=== PATIENT | female | born 1940 | race Caucasian/White ===

== ENCOUNTER 2016-12-30 20:07 | Inpatient (IN) | payer OTHER ==
[~2016-12-30] VITALS: Ht 162.6 cm; Wt 101.0 kg
--- NOTE | ~2016-12-30 | HC ---
[facility] [place] [address] CONSULTATION Name: JED PINON Room #: 546-P ADM IN M.R.#: [id number] Admission: 12/30/16 Attend Phys: Shaheed Galvan MD Discharge: Date of : 42 Report #: [id number] THIS REPORT FOR: //name// [facility] REASON FOR PRESENTATION: Post fall. REASON FOR CONSULTATION: End-stage renal disease. HISTORY OF PRESENT ILLNESS: The patient is a 76-year-old who is known to have end-stage renal disease, maintained on hemodialysis every Wednesday, and Wednesday. She has multiple other comorbid issues including and not limited COPD, obstructive sleep apnea. She had a fall yesterday and was admitted after her right leg gave out and landed abruptly on her right knee. No fractures were detected. She did have some swelling after the fall. She was admitted for further evaluation and management of her social situation. I was consulted to manage her dialysis related issues. PAST MEDICAL HISTORY: 1. End-stage renal disease, maintained on hemodialysis. 2. Hypertension. 3. Diabetes mellitus. 4. Obstructive sleep apnea. 5. Coronary artery disease. 6. Post-cholecystectomy. 7. Post-left AV fistula. 8. Post stents. SOCIAL HISTORY: Remote history of smoking, but no drug or alcohol abuse. FAMILY HISTORY: Significant for diabetes mellitus and hypertension. Brother had renal cell carcinoma. ALLERGIES: METFORMIN, PENICILLIN. MEDICATIONS: 1. Aspirin. 2. Linagliptin. 3. Levothyroxine. 4. Pioglitazone. 5. Nitroglycerin. 6. Albuterol. PAST SURGICAL HISTORY: 1. Appendectomy. 2. Cholecystectomy. [facility] [address] [place] [address] CONSULTATION Name: JED PINON Room #: 546-P ADM IN M.R.#: [id number] Admission: 12/30/16 Attend Phys: Shaheed Galvan MD Discharge: Date of : 42 Report #: [id number] 3. Bilateral cataracts. 4. Left AV fistula. 5. Multiple teeth extractions. REVIEW OF SYSTEMS: GENERAL: No fever or chills. CARDIOVASCULAR: No chest pain or palpitation. PULMONARY: Significant for shortness of breath, but no cough or hemoptysis. GASTROINTESTINAL: No nausea or vomiting. PHYSICAL EXAMINATION GENERAL: She is alert, oriented, in no apparent distress. VITAL SIGNS: Blood pressure is 101/36. Temperature 36.7, pulse rate 73. HEAD AND NECK: No jugular venous distention, no bruit, no thyromegaly. CHEST: Decreased air entry bilaterally with scattered wheezes. CARDIOVASCULAR: Regular with no rub detected. ABDOMEN: Soft, nontender with no hepatosplenomegaly. LOWER EXTREMITIES: Trace edema. LABORATORY VALUES: Reviewed. Hemoglobin 10.4. Potassium 5.5. Glucose is low at 65. IMAGING: Including the knee and the femur x-ray reviewed. ASSESSMENT, IMPRESSION AND PLAN: 1. End-stage renal disease. 2. Status post fall. 3. Debility. 4. Chronic obstructive pulmonary disease. 5. Obstructive sleep apnea. 6. Hyperkalemia. 7. Anemia related to her chronic medical illnesses. 8. The patient will be arranged for her to have dialysis today. 9. Continue to address her other comorbid issues including her diabetes mellitus and hypertension. 10. She tells me that she has issues with her AV fistula in the last few treatments and we will arrange for fistulogram. 11. 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 <ELECTRONICALLY SIGNED> By: Jhon Dumont MD 01/01/17 0824 0826 1459 Jhon Dumont MD /nt
--- NOTE | ~2016-12-30 | HC ---
[facility] [place] [address] CONSULTATION Name: JED PINON Room #: 546-P ADM IN M.R.#: [id number] Admission: 12/30/16 Attend Phys: Shaheed Galvan MD Discharge: Date of : 42 Report #: [id number] THIS REPORT FOR: //name// [facility] DATE OF SERVICE: 12/31/2016 HISTORY OF PRESENT ILLNESS: This heavy 76-year-old female with multiple medical problems including chronic renal failure, has been living semi independently with some assistance. She apparently fell several days ago landing awkwardly on the right knee. She was admitted for further evaluation and probable assistance with moving to extended care facility. She has already had radiographic evaluation of the knee and the right femur, which revealed no evidence of fracture. At the time of my evaluation, she is undergoing hemodialysis. She is alert and oriented and seems to have a good recollection of the event. She states she did not have significant preexisting knee problems and was able to ambulate independently, although with some balance issues, she is uncertain how she fell and feel she probably twisted the knee slightly and then landed on the knee. When hit the floor, she notes rather generalized right knee discomfort, mostly to the anterior aspect, but states these symptoms have improved significantly over the past 24 hours. Objectively, the right knee demonstrates moderate obesity of the thigh. There appears to be mild swelling about the knee and a mild knee effusion. The skin is intact. There is no redness or warmth. The knee seems stable with gentle varus and valgus stress. The patella seemed to be well positioned and tracked nicely. There is no crepitus. There is no evidence of instability. Distal neurologic and vascular status appeared to be intact. There is no objective evidence, which would suggest a fracture about the hip, knee, or lower leg. I have reviewed the x-rays of the right femur in the right knee and agreed that there is mild degenerative arthritis, but no evidence of any new fractures and overall alignment appears to be normal. In summary, this patient has mild preexisting degenerative arthritis involving the right knee. I think her fall resulted in a simple knee sprain and contusion. She may have a very mild prepatellar bursitis and a mild knee sprain with a mild joint effusion; however, this is not severe and probably does not require any sort of drainage. The knee appears stable. I think we can advance activity to comfort and strength allow. I feel her hip is also intact. I have not been able to reach family yet, I think their plans are to proceed with transfer to some sort of an assisted living or extended care facility given her multiple general problems, I think there she can get up with a walker and bear [facility] [address] [place] [address] CONSULTATION Name: JED PINON Room #: 546-P ADM IN M.R.#: [id number] Admission: 12/30/16 Attend Phys: Shaheed Galvan MD Discharge: Date of : 42 Report #: [id number] weight as tolerated if comfort and strength will allow. I am happy to follow along while she is here in the hospital or see her as an outpatient if symptoms require. <ELECTRONICALLY SIGNED> By: Willy Linder MD 01/01/17 0908 1142 1450 Willy Linder MD /nt
[2016-12-30 20:07] VITALS: BP 135/46
[~2016-12-30 20:07] MED LIST: ADVAIR HFA 230M12 GM INH; ALBUTEROL2.5 MG/0.5 INH; ALPRAZOLAM ER1 MG PO; ALPRAZOLAM PO; AMARYL2 MG PO; ASA81BEC PO; ASPIRIN EC325 M1 PO; CALCITRIOL0.5 MCG PO; CARVEDILOL25 MG PO; CLOPIDOGREL75 MG PO; COZAAR 50 MG TA50 M1 PO; CRESTOR40 MG PO; FENOFIBRATE200 MG PO; GLIMEPIRIDE4 MG PO; HUMALOG PE100 UNIT/1 SUBQ; LANTUS SUBQ; LEVAQUIN 500 M500 M1 PO; LEVOTHYROXIN0.175 MG PO; LEVOTHYROXINE0.2 M1 PO; LISINOPRIL20 MG PO; LISINOPRIL5 MG PO; MINIPRIN81 MG PO; MIRAPEX0.125 MG PO; MUCINEX DM TABL1 TA1 PO; NITROGLYCERIN0.4 MG SUBLING; NORCO 5-325 TA1 EACH PO; NOVOLOG100 UNIT/1 SUBQ; PROTONIX40 M2 PO; RENAL CAPS SOFTG1 MG PO; RENVELA2.4 GM PO; SENSIPAR60 MG PO; SPIRIVA INH; SYMBICORT160 MCG/4. INH; TUMS PO; VENTOLIN HFA INH8 GM INH; VITAMIN E400 UNIT PO; ZOCOR20 MG PO; ZOFRAN ODT4 MG PO; ZOLOFT25 MG PO
[2016-12-30 22:35] LABS: HEMATOCRIT 32.1 % (37.0-47.0); HEMOGLOBIN 10.4 gm/dL (12.0-15.0); MCH 29.5 pg (26.0-34.0); MCHC 32.5 g/dL (28.0-37.0); MCV 90.8 fL (80.0-100.0); PLATELET COUNT 213 thou/uL (150-400); RBC 3.54 mil/uL (4.20-5.00); RDW 17.2 % (10.5-14.5); WBC 7.9 thou/uL (4.0-11.0)
[2016-12-30] MEDS ORDERED: XANAX1 MG PO (22:42)
[2016-12-30] MEDS ORDERED: CALCIUM ACETAT667 MG PO (22:42)
[2016-12-30] MEDS ORDERED: GLUCOTROL5 MG PO (22:43)
[2016-12-30 22:44] LABS: CALCIUM 7.3 mg/dL (8.5-10.1); CREATININE 6.2 mg/dL (0.6-1.0); POTASSIUM 5.5 mmol/L (3.5-5.1)
[2016-12-30 22:48] LABS: ALBUMIN 3.1 g/dL (3.4-5.0); MANUAL DIFF YES; TOTAL BILIRUBIN 0.7 mg/dL (<0.1-1.0); TOTAL PROTEIN 7.4 g/dL (6.4-8.2)
[2016-12-30] MEDS ORDERED: LEVOTHYROXINE 0.15MG PO (22:52)
[2016-12-30] MEDS ORDERED: ATORVASTATIN CA40 MG PO (22:52)
[2016-12-30] MEDS ORDERED: PIOGLITAZONE15 MG PO (22:53)
[2016-12-30 23:12] VITALS: BP 139/55
[2016-12-30 23:25] LABS: ABSOLUTE NEUTROPHILS 6.9 thou/uL (1.4-8.2); ANISOCYTOSIS 1+; TOTAL CELL COUNT 100
[2016-12-31] MEDS ORDERED: TRADJENTA5 MG PO (00:20)
[2016-12-31 04:00] VITALS: BP 101/36
[2016-12-31 08:30] VITALS: BP 104/24
[2016-12-31 15:45] VITALS: BP 116/47
[2016-12-31 18:07] LABS: HEP B SURFACE Ab(ANTI-HBS Reactive (())
[2016-12-31 21:32] VITALS: BP 120/52
[2017-01-01 05:05] VITALS: BP 110/48
[2017-01-01 07:33] VITALS: BP 97/36
[2017-01-01 08:54] LABS: INR 1.1; PROTIME 11.7 Seconds (9.3-11.4)
[2017-01-01 15:09] VITALS: BP 112/40
[2017-01-01 21:30] VITALS: BP 101/38
[2017-01-02 04:40] VITALS: BP 110/61
[2017-01-02] MEDS ORDERED: HYDROCODON-ACE1 EAC7 PO (10:34)
== END 2017-01-02 14:13 | DRG 515 ==
LOC: ER 20:07 → EROBS 22:00 → 5S 22:00
PROVIDERS: Family Medicine; Hospitalist; Nurse Practitioner Family
DX: S86.812A Strain of other muscle(s) and tendon(s) at lower leg level, left leg, initial encounter (principal); N18.6 End stage renal disease; J96.11 Chronic respiratory failure with hypoxia; I12.0 Hypertensive chronic kidney disease with stage 5 chronic kidney disease or end stage renal disease; T82.590A Other mechanical complication of surgically created arteriovenous fistula, initial encounter; S80.01XA Contusion of right knee, initial encounter; M25.461 Effusion, right knee; I25.10 Atherosclerotic heart disease of native coronary artery without angina pectoris; J44.9 Chronic obstructive pulmonary disease, unspecified; E11.22 Type 2 diabetes mellitus with diabetic chronic kidney disease; E78.00 Pure hypercholesterolemia, unspecified; E87.5 Hyperkalemia; D63.8 Anemia in other chronic diseases classified elsewhere; F32.9 Major depressive disorder, single episode, unspecified; G47.33 Obstructive sleep apnea (adult) (pediatric); E66.9 Obesity, unspecified; W18.39XA Other fall on same level, initial encounter; Y83.8 Other surgical procedures as the cause of abnormal reaction of the patient, or of later complication, without mention of misadventure at the time of the procedure; Z68.38 Body mass index [BMI] 38.0-38.9, adult; I25.2 Old myocardial infarction; Z90.49 Acquired absence of other specified parts of digestive tract; Z95.5 Presence of coronary angioplasty implant and graft; Z98.42 Cataract extraction status, left eye; Z98.41 Cataract extraction status, right eye; Z79.82 Long term (current) use of aspirin; Z79.899 Other long term (current) drug therapy; Z87.891 Personal history of nicotine dependence; Z88.0 Allergy status to penicillin; Z88.8 Allergy status to other drugs, medicaments and biological substances; Z83.3 Family history of diabetes mellitus; Z82.49 Family history of ischemic heart disease and other diseases of the circulatory system; Z84.2 Family history of other diseases of the genitourinary system; Y93.89 Activity, other specified; Y92.89 Other specified places as the place of occurrence of the external cause; Y99.8 Other external cause status
CPT/HCPCS: 10086; 32100

== ENCOUNTER 2017-11-11 18:19 | Inpatient (IN) | payer OTHER ==
[~2017-11-11] VITALS: Ht 162.6 cm; Wt 92.5 kg
--- NOTE | ~2017-11-11 | EKG ---
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 : 1940 Requested By: Radha Muhammad Order Number: [id number] MD: Vitaliy Abarca Measurements Intervals Dawson Rate: 122 P: GA: QRS: 78 QRSD: 99 T: 166 QT: 342 QTc: 488 Interpretive Statements Atrial fibrillation Poor R wave progression Inferior infarct, possibly acute Compared to ECG 03/08/2013 08:08:04 Myocardial infarct finding now present Atrial fibrillation has replaced sinus rhythm Electronically Signed On 11-12-2017 8:30:50 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
--- NOTE | ~2017-11-11 | 2DMMODE ---
[facility] [address] [place] [address] 2 D/M-MODE ECHOCARDIOGRAM Name: JED PINON Room #: 358-P ADM IN M.R.#: [id number] Admission: 11/11/17 Attend Phys: Myra Barrera Discharge: Date of : 42 Date of Service: 11/14/17 0934 Report #: [id number] THIS REPORT FOR: //name// APPROVED REPORT Study performed: 11/13/2017 12:08:26 EXAM: Comprehensive 2D, Doppler, and color-flow Echocardiogram Patient Location: Bedside Room #: 358 Status: on-call BSA: 2.03 HR: 128 bpm BP: 88/47 mmHg Rhythm: Atrial Fibrillation Other Information Study Quality: Adequate Risk Factors: Cardiac Risk Factors: HTN, Hyperlipidemia, DM Indications COPD CAD ESRD Weakness 2D Dimensions LVEF(%): 64.33 (>50%) IVSd: 9.30 (7-11mm) LVOT Diam: 21.00 (18-24mm) LVDd: 46.64 mm PWd: 11.28 (7-11mm) Ascending Ao: 29.48 (22-36mm) LVDs: 30.30 (25-40mm) Aortic Root: 23.41 mm LV Single Plane 4CH: 59.44 % LV Single Plane 2CH: 64.02 % Carrasco's LVEF: 61.73 % Volumes Left Atrial Volume (Systole) Single Plane 4CH: 67.85 mL Single Plane 2CH: 55.48 mL Aortic Valve AoV Peak Mayco.: 1.65 m/s [facility] [address] [place] [address] 2 D/M-MODE ECHOCARDIOGRAM Name: JED PINON Room #: 358-P [facility] IN ..#: [id number] Admission: 11/11/17 Attend Phys: Myra Barrera Discharge: Date of : 42 Date of Service: 11/14/17 0934 Report #: [id number] AO Peak Gr.: 10.94 mmHg LVOT Max P.37 mmHg LVOT Max V: 0.77 m/s OCTAVIA Vmax: 1.54 cm2 Pulmonary Valve PV Peak Mayco.: 1.13 m/s PV Peak Gr.: 5.25 mmHg Tricuspid Valve TR Peak Mayco.: 2.67 m/s RAP Estimate: 10.00 mmHg TR Peak Gr.: 28.48 mmHg PA Pressure: 39.00 mmHg Left Ventricle The left ventricle is normal size. There is normal LV segmental wall motion. Borderline concentric left ventricular hypertrophy. Left ventricular systolic function is normal. The left ventricular ejection fraction is within the normal range. LVEF is 60-65%. Left atrial pressure is elevated. Grade III - reversible restrictive diastolic dysfunction. Right Ventricle The right ventricle is normal size. The right ventricular systolic function is normal. Atria Left atrium is mildly dilated. Right atrium is mildly dilated. Aortic Valve The Aortic valve is sclerotic. No aortic regurgitation is present. There is no aortic valvular stenosis. Mitral Valve There is mitral annular calcification. Trace mitral regurgitation. No evidence of mitral valve stenosis. Tricuspid Valve The tricuspid valve is normal in structure. moderate tricuspid regurgitation. Pulmonary artery pressure is 39 mmHg. Pulmonic Valve The pulmonary valve is normal in structure. There is no pulmonic valvular regurgitation. Great Vessels The aortic root is normal in size. IVC is dilated and collapses [facility] [address] [place] [address] 2 D/M-MODE ECHOCARDIOGRAM Name: JED PINON Room #: 358-P ADM IN M.R.#: [id number] Admission: 11/11/17 Attend Phys: Myra Barrera Discharge: Date of : 42 Date of Service: 11/14/17 0934 Report #: [id number] <50% with inspiration. Pericardium There is no pericardial effusion. <Conclusion> LVEF is 60-65%. There is normal LV segmental wall motion. Left atrial pressure is elevated. Grade III - reversible restrictive diastolic dysfunction. The Aortic valve is sclerotic. There is no aortic valvular stenosis. No aortic regurgitation is present. There is mitral annular calcification. Trace mitral regurgitation. No evidence of mitral valve stenosis. moderate tricuspid regurgitation. Pulmonary artery pressure is 39 mmHg. There is no pericardial effusion. <ELECTRONICALLY SIGNED> By: Dmitry Soria MD, FAC 11/14/1734 3 3 Dmitry Soria MD, FAC /INF
--- NOTE | ~2017-11-11 | HC ---
[facility] [place] [address] CONSULTATION Name: JED PINON Room #: 358-P [facility] IN M.R.#: [id number] Admission: 11/11/17 Attend Phys: Myra Bray Discharge: 11/17/17 Date of : 42 Report #: [id number] THIS REPORT FOR: //name// CC: [facility] DATE OF SERVICE: 11/12/2017 NEPHROLOGY CONSULTATION ATTENDING PHYSICIAN: Dr. Bray. REASON FOR CONSULTATION: Volume overload, congestive heart failure. HISTORY OF PRESENT ILLNESS: This patient is well known to our service, longstanding dialysis patient with diabetes and coronary artery disease, has had atrial fibrillation, has had massive fluid accumulation despite ongoing dialysis and has been unable to get the fluid off with daily dialysis in the outpatient clinic and now has been admitted. She also had a mildly elevated troponin. PAST MEDICAL HISTORY: She has coronary artery disease, has had previous coronary stents with ischemic cardiomyopathy, chronic atrial fibrillation, longstanding dialysis, end-stage renal disease. HOME MEDICATIONS: Include midodrine 2.5 mg t.i.d., Nephrocaps, warfarin 4 mg daily, metoprolol 25 mg b.i.d., calcium acetate 2 t.i.d. with meals, levothyroxine 0.15 mg daily, Lipitor 40 mg daily, Actos 45 mg daily, fenofibrate 200 mg daily, Protonix 40 mg daily, Mirapex 0.125 mg at bedtime, Zoloft 25 mg at bedtime. SOCIAL HISTORY: Former smoker. Lives at home I believe by herself. REVIEW OF SYSTEMS: GENERAL: She has been feeling poorly. EYES: Her vision is reasonably good. ENT: Hearing okay. Swallows okay. Denies mouth ulcers. ENDOCRINE: Positive for the diabetes and thyroid disease. RESPIRATORY: Easily short-winded. CARDIAC: No chest pain, but she does have palpitations. GASTROINTESTINAL: Good appetite without nausea, vomiting, diarrhea. GENITOURINARY: Unremarkable. NEUROLOGIC: Some peripheral neuropathy. PHYSICAL EXAMINATION: GENERAL: This is a chronically ill-appearing patient, somewhat swollen. [facility] [address] [place] [address] CONSULTATION Name: JED PINON Room #: 358-P [facility] IN M.R.#: [id number] Admission: 11/11/17 Attend Phys: Myra Bray Discharge: 11/17/17 Date of : 42 Report #: [id number] SKIN: Unremarkable. SKELETAL: Overweight. HEENT: Extraocular movements full. Vision intact. No scleral icterus. Hearing intact. Mucous membranes moist. NECK: No carotid bruits are heard. CHEST: Shows diminished breath sounds at the bases. HEART: Irregularly irregular. ABDOMEN: Soft, nontender. EXTREMITIES: Show 2-3+ brawny edema. LABORATORY DATA: Potassium is only 3, hemoglobin is 9.9. ASSESSMENT AND PLAN: 1. Atrial fibrillation with rapid ventricular response. Cardiology is working on her medications. 2. Chronic volume overload. She has lots of volume on board. We will work on trying to get it off. 3. Ischemic cardiomyopathy with history of coronary artery disease and stents. 4. End-stage renal disease, on dialysis. 5. Diabetes mellitus. <ELECTRONICALLY SIGNED> By: Andrew Dominguez MD 11/23/17 1706 1019 1150 Andrew Dominguez MD /nt
--- NOTE | ~2017-11-11 | HC ---
[facility] [place] [address] CONSULTATION Name: JED PINON Room #: 358-P ADM IN M.R.#: [id number] Admission: 11/11/17 Attend Phys: Myra Bray Discharge: Date of : 42 Report #: [id number] THIS REPORT FOR: //name// CC: Myra Montelongo DATE OF SERVICE: 11/12/2017 REQUESTING PHYSICIAN: Dr. Hobbs. PRIMARY CARE DOCTOR: Dr. Shari Bautista, Dr. Nadine Montelongo and Dr. Willy Kowalski. CHIEF COMPLAINT: Weakness, shortness of breath, fluid retention, vaginal cellulitis. HISTORY OF PRESENT ILLNESS: The patient is a 77-year-old female who presented with weakness and fluid retention. She has been having increasing shortness of breath on her oxygen at home. She has a history of obstructive lung disease, coronary artery disease, status post remote MA and atrial fibrillation. These are all known problems and we are asked to see her in regards to her atrial fibrillation, which had elevated heart rates and associated with lower blood pressures. Clinically, the patient does not feel her palpitations. She has dyspnea with exertion. She has underlying history of coronary artery disease, but denies chest pain or pressure. She had been dialyzing for 2-3 days in a row with hopes to remove her extra fluid, but with minimal response. She presents with increasing lower extremity swelling and abdominal girth. With her atrial fibrillation, she denies neuro symptoms, slurred speech, numbness or weakness. She had been anticoagulated with warfarin. Her INR was 8.9 on presentation. PAST MEDICAL HISTORY: Significant for coronary artery disease, atrial fibrillation, COPD, end-stage renal disease, debilitation. HOME MEDICATIONS: Include the following: Folic acid, warfarin 4 mg daily, which she had been taking and compliant with Lopressor 25 mg daily, alprazolam p.r.n., Synthroid 125 mcg daily, Actos 45 mg daily, Protonix 40 mg daily, Zoloft, nitroglycerin, and albuterol. [facility] [address] [place] [address] CONSULTATION Name: JED PINON Room #: 358-P [facility] IN ..#: [id number] Admission: 11/11/17 Attend Phys: Myra Bray Discharge: Date of : 42 Report #: [id number] PAST SURGICAL HISTORY: Prior appendectomy; cholecystectomy; PCI 3 times, in 1989, 2010; prior carotid endarterectomy. REVIEW OF SYSTEMS: GASTROINTESTINAL: No abdominal pain, nausea. Positive swelling. CARDIOVASCULAR: No chest pain. Positive shortness of breath. No palpitations. NEUROLOGIC: No headaches, blurry vision, slurred speech. EYES: Denies any loss of vision. MUSCULOSKELETAL: Denies falls. Positive weakness. PULMONARY: Positive cough, shortness of breath. Positive wheezing, positive COPD. HEMATOLOGIC: Positive anemia. RENAL: Positive renal failure. ENDOCRINE: Positive history of diabetes and thyroid disease. PHYSICAL EXAMINATION: VITAL SIGNS: Blood pressure has been ranging from 90-110 systolic on IV Cardizem, atrial fibrillation, heart rates have in the 110s to 120s. O2 sat on 4 liters is 95%. GENERAL: This is an obese elderly female. She is pleasant and sitting up on the edge of bed, in no apparent distress. HEENT: Eyes: EOMS intact. No facial asymmetry. NECK: No jugular venous distention. CARDIOVASCULAR: Irregular, faint systolic murmur. LUNGS: Coarse breath sounds bilaterally. ABDOMEN: Protuberant, nontender, positive distention. EXTREMITIES: There is 1 to 2+ edema. NEUROLOGIC: There are no focal deficits. Electrocardiogram demonstrates atrial fibrillation, nonspecific ST segment abnormalities. LABORATORY DATA: Hemoglobin is 9.9, white blood count is 10.0, platelet counts are 94,000. INR is 8.9. Sodium is 136, potassium is 3.0, chloride is 100, CO2 is 24, BUN is 14, creatinine is 3.0. Troponin I is 0.10, 0.09. NT-proBNP is 13,557. Chest x-ray reveals cardiomegaly with pulmonary venous congestion. Pelvic CT, enlargement of the right labia majora with increased attenuation, may be due to infection, anasarca and mild ascites. IMPRESSION AND PLAN: 1. Acute diastolic heart failure. I would continue with dialysis as tolerated. 2. Atrial fibrillation with rapid ventricular response. We will titrate her medications, adding a calcium channel bess to her metoprolol. We will likely wean her off IV Cardizem as she has developed symptomatic hypotension. If this [facility] [address] [place] [address] CONSULTATION Name: JED PINON Room #: 358-P ADM IN M.R.#: [id number] Admission: 11/11/17 Attend Phys: Myra Bray Discharge: Date of : 42 Report #: [id number] does not control her heart rate, we may need the amiodarone load her. 3. Cellulitis. As noted above, she is on antibiotics. 4. Coagulopathy. 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 5. End-stage renal disease. 6. Coronary artery disease. I have ordered an echocardiogram to assess her LV function, but she presents without symptoms compatible with an ACS and likely her abnormal troponin level is secondary to congestive heart failure and her end-stage renal disease. <ELECTRONICALLY SIGNED> By: Dmitry Soria MD, FACC 11/17/17 0844 0841 0931 Dmitry Soria MD, FACC /nt
--- NOTE | ~2017-11-11 | HC ---
[facility] [place] [address] CONSULTATION Name: JED PINON Room #: 358-P ADM IN M.R.#: [id number] Admission: 11/11/17 Attend Phys: Myra Bray Discharge: Date of : 42 Report #: [id number] THIS REPORT FOR: //name// [facility] DATE OF SERVICE: 11/14/2017 INFECTIOUS DISEASE CONSULTATION ATTENDING PHYSICIAN: Myra Bray MD REASON FOR EVALUATION: Multiple pressure related right buttock superficial ulcers, also has inflammatory eruption involving the pannus folds as well as the more typical cellulitic type rash involving the perineal area include the labia. HISTORY OF PRESENT ILLNESS: Chart reviewed, patient examined. This is a 77-year-old with extensive medical history, has end-stage renal disease on hemodialysis, also has O2 requiring COPD up to 4 liters throughout the day who apparently 3 weeks ago had worsening signs and symptoms, became quite weak, decreased mobility, developed sores on her buttock, had been treated with topical therapy. It is not clear that she had fevers at home and feels like there were some low-grade temperature elevations and recorded up to 100.3 here. She has had a poor appetite with decreased p.o. intake. Denies significant nausea or diarrhea. She is empirically started on antibiotics consisting of aztreonam, metronidazole, and vancomycin. She is not encephalopathic. Denies significant pulmonary related complaints at this point. ALLERGIES: PENICILLIN WHICH CAUSES URTICARIA, SHE NOTES THIS HAS BEEN GREATER THAN 20 YEARS AGO. METFORMIN CAUSES DIARRHEA. MEDICATIONS: Include metoprolol, diltiazem, aztreonam, Flagyl, alprazolam, diltiazem, atorvastatin, phenylephrine, fenofibrate, pioglitazone, levothyroxine, sertraline, midodrine, vancomycin, p.r.n. analgesics, antiemetics. PAST MEDICAL HISTORY: COPD, O2 requiring although she denies significant amount of exogenous corticosteroid use, has diabetes mellitus type 2 complicated by vasculopathy, end-stage renal disease, has known coronary artery disease, previous stenting, hypertension, high cholesterol, sleep apnea, reflux, does have hemorrhoids, has a history of depression. SOCIAL HISTORY: Former smoker, occasional ethanol. FAMILY HISTORY: Noncontributory. [facility] [address] [place] [address] CONSULTATION Name: JED PINON Room #: 358-[facility] IN M.R.#: [id number] Admission: 11/11/17 Attend Phys: Myra Bray Discharge: Date of : 42 Report #: [id number] REVIEW OF SYSTEMS: As above. PHYSICAL EXAMINATION: GENERAL: She is in geja-tl-pyzamevh distress. She appears chronically ill, undernourished. She is cooperative, pleasant. VITAL SIGNS: Temperature 97.8, pulse 97, respirations 20, blood pressure is 80/48. SKIN: Warm, dry. HEENT: Unremarkable. NECK: Supple. LUNGS: Somewhat diminished, generally clear with a few scattered crackles at the bases. HEART: Regular. Borderline tachycardic. I do not appreciate any murmur. ABDOMEN: Soft. Does have a large pannus in the folds, does have an inflammatory eruption and then down more in the suprapubic into the labia is more typically cellulitic type process with induration of the right labia, no apparent fluctuance. Sacral site right buttock is a paring pressure related superficial ulcerations with mild degree of malodor as well. I do not appreciate any significant subcutaneous masses, etc. LABORATORY DATA: Total bilirubin of 2.0. Cryptosporidium antigen was not detected as was negative for Giardia, enteric pathogens were not noted, although culture in progress. Blood cultures sterile thus far. Echo EF of 60%-65%. She has got a grade 3 diastolic dysfunction, aortic valve sclerotic without stenosis. There is some aortic regurg present. Trace mitral regurg, moderate tricuspid regurg. A proBNP of 14,349. CBC: White count of 7.9, H and H 10.4 and 32.0, platelets of 213. Electrolytes: Sodium 136, potassium 3.4, chloride 98, bicarbonate is 26, BUN and creatinine 24 and 4.1. TSH is 6.769. CT of the pelvis with contrast showed enlargement of the right labia and attenuation of soft tissues. No subcutaneous emphysema or focal fluid collection. Chest x-ray: Cardiomegaly with pulmonary vascular venous congestion, mild perihilar interstitial infiltrates. ASSESSMENT AND PLAN: Inflammatory eruption involving the perineal and some superficial ulcers may well have certainly the labia suggest a cellulitic type process. I do not think there is any drainable focus at this point, would continue antimicrobial treatment, may well have a fungal component as well, we will dose with fluconazole. She is certainly at risk given her body habitus as well as broad spectrum antibacterials. Continue wound care as prescribed. We will discuss with Dr. Lovelace. <ELECTRONICALLY SIGNED> By: Daniel Mcdaniel MD 11/15/17 0757 1736 222 Daniel Mcdaniel MD /nt
[~2017-11-11 18:19] MED LIST changes: +ATORVASTATIN CA40 MG PO; +CALCIUM ACETAT667 MG PO; +GLUCOTROL5 MG PO; +HYDROCODON-ACE1 EAC7 PO; +LEVOTHYROXINE 0.15MG PO; +PIOGLITAZONE15 MG PO; +TRADJENTA5 MG PO; +XANAX1 MG PO
[2017-11-11 18:22] VITALS: BP 93/44
[2017-11-11 18:53] LABS: HEMATOCRIT 30.1 % (37.0-47.0); HEMOGLOBIN 9.9 gm/dL (12.0-15.0); MCH 34.2 pg (26.0-34.0); MCHC 32.9 g/dL (28.0-37.0); MCV 104.1 fL (80.0-100.0); PLATELET COUNT 190 thou/uL (150-400); RDW 18.6 % (10.5-14.5); WBC 10.3 thou/uL (4.0-11.0)
[2017-11-11 19:00] LABS: CALCIUM 8.5 mg/dL (8.5-10.1); CREATININE 2.6 mg/dL (0.6-1.0); POTASSIUM 3.3 mmol/L (3.5-5.1)
[2017-11-11 19:04] LABS: TROPONIN-I 0.09 ng/mL (<0.06)
[2017-11-11 19:29] LABS: ABSOLUTE NEUTROPHILS 7.7 thou/uL (1.4-8.2)
[2017-11-11 19:30] LABS: ANISOCYTOSIS 1+; MACROCYTES 2+; POLYCHROMASIA SLIGHT
[2017-11-11 21:00] VITALS: BP 93/46
[2017-11-11 21:16] VITALS: BP 94/35
[2017-11-11] MEDS ORDERED: MIDODRINE HCL 55 M1 PO (21:36)
[2017-11-11] MEDS ORDERED: RENO CAPS SOFTGE1 MG PO (21:37)
[2017-11-11] MEDS ORDERED: COUMADIN 4 MG TA4 M1 PO (21:39)
[2017-11-11] MEDS ORDERED: LOPRESSOR25 PO (21:43)
[2017-11-12 00:02] LABS: PROTIME 89.6 Seconds (9.3-11.4)
[2017-11-12 00:09] LABS: INR 9.1
[2017-11-12 03:00] VITALS: BP 129/30
[2017-11-12 04:23] LABS: CALCIUM 7.7 mg/dL (8.5-10.1); MAGNESIUM 1.8 mg/dL (1.8-2.4)
[2017-11-12 05:30] LABS: PROTIME 87.3 Seconds (9.3-11.4)
[2017-11-12 05:31] LABS: INR 8.9
[2017-11-12 05:32] LABS: HEMATOCRIT 30.1 % (37.0-47.0); HEMOGLOBIN 9.9 gm/dL (12.0-15.0); MCH 34.1 pg (26.0-34.0); MCHC 32.8 g/dL (28.0-37.0); MCV 104.1 fL (80.0-100.0); RBC 2.89 mil/uL (4.20-5.00); RDW 19.4 % (10.5-14.5)
[2017-11-12 07:16] VITALS: BP 80/46
[2017-11-12 08:36] VITALS: BP 111/57
[2017-11-12 11:05] VITALS: BP 86/51
[2017-11-12 15:44] VITALS: BP 76/48
[2017-11-12 16:59] LABS: HEMATOCRIT 31.5 % (37.0-47.0); HEMOGLOBIN 10.3 gm/dL (12.0-15.0)
[2017-11-12 17:28] LABS: PROTIME 31.9 Seconds (9.3-11.4)
[2017-11-12 17:35] LABS: INR 3.2
[2017-11-12 19:30] VITALS: BP 77/43
[2017-11-13 04:10] VITALS: BP 101/57
[2017-11-13 04:30] LABS: HEMATOCRIT 28.6 % (37.0-47.0); HEMOGLOBIN 9.3 gm/dL (12.0-15.0); MCH 34.3 pg (26.0-34.0); MCHC 32.7 g/dL (28.0-37.0); MCV 105.1 fL (80.0-100.0); RBC 2.72 mil/uL (4.20-5.00); WBC 8.7 thou/uL (4.0-11.0)
[2017-11-13 04:40] LABS: INR 2.1; PROTIME 20.9 Seconds (9.3-11.4)
[2017-11-13 04:51] LABS: CALCIUM 8.5 mg/dL (8.5-10.1); POTASSIUM 3.4 mmol/L (3.5-5.1)
[2017-11-13 04:54] LABS: CREATININE 4.1 mg/dL (0.6-1.0)
[2017-11-13 08:28] VITALS: BP 88/47
[2017-11-13 11:20] VITALS: BP 104/64
[2017-11-13 16:11] VITALS: BP 85/37
[2017-11-13 17:27] LABS: HEMOGLOBIN 10.4 gm/dL (12.0-15.0); MCH 34.2 pg (26.0-34.0); MCHC 32.7 g/dL (28.0-37.0); MCV 104.7 fL (80.0-100.0); RBC 3.05 mil/uL (4.20-5.00); RDW 19.5 % (10.5-14.5); WBC 7.9 thou/uL (4.0-11.0)
[2017-11-13 17:41] LABS: ALBUMIN 2.8 g/dL (3.4-5.0); CALCIUM 8.7 mg/dL (8.5-10.1); CREATININE 2.8 mg/dL (0.6-1.0); POTASSIUM 3.8 mmol/L (3.5-5.1); TOTAL BILIRUBIN 2.6 mg/dL (<0.1-1.0); TOTAL PROTEIN 7.7 g/dL (6.4-8.2)
[2017-11-13 19:33] VITALS: BP 96/49
[2017-11-14] VITALS (7 sets, daily range): BP systolic 77–145; BP diastolic 35–87
[2017-11-14 07:18] LABS: INR 1.5; PROTIME 15.4 Seconds (9.3-11.4)
[2017-11-14 07:26] LABS: ALBUMIN 2.9 g/dL (3.4-5.0); CALCIUM 8.6 mg/dL (8.5-10.1); CREATININE 3.4 mg/dL (0.6-1.0); PHOSPHORUS 1.4 mg/dL (2.5-4.9); POTASSIUM 3.6 mmol/L (3.5-5.1)
[2017-11-14 14:58] LABS: DIRECT BILIRUBIN 1.3 mg/dL (<0.1-0.3)
[2017-11-15 05:05] VITALS: BP 88/46
[2017-11-15 05:54] LABS: INR 1.7; PROTIME 16.8 Seconds (9.3-11.4)
[2017-11-15 05:56] LABS: HEMATOCRIT 29.8 % (37.0-47.0); HEMOGLOBIN 9.5 gm/dL (12.0-15.0); MCH 33.9 pg (26.0-34.0); MCHC 31.9 g/dL (28.0-37.0); MCV 106.3 fL (80.0-100.0); RBC 2.8 mil/uL (4.20-5.00); RDW 19.8 % (10.5-14.5); WBC 5.9 thou/uL (4.0-11.0)
[2017-11-15 06:01] LABS: ALBUMIN 2.6 g/dL (3.4-5.0); CALCIUM 8.2 mg/dL (8.5-10.1); POTASSIUM 4.1 mmol/L (3.5-5.1); TOTAL BILIRUBIN 1.8 mg/dL (<0.1-1.0); TOTAL PROTEIN 6.2 g/dL (6.4-8.2)
[2017-11-15 06:04] LABS: CREATININE 4.5 mg/dL (0.6-1.0)
[2017-11-15 07:55] VITALS: BP 105/28
[2017-11-15 12:32] VITALS: BP 78/40
[2017-11-15 19:22] VITALS: BP 75/42
[2017-11-16 03:30] VITALS: BP 80/43
[2017-11-16 07:46] VITALS: BP 81/36
[2017-11-16 11:45] VITALS: BP 73/36
[2017-11-16 17:13] VITALS: BP 94/46
[2017-11-16 20:48] VITALS: BP 70/43
[2017-11-17 00:34] VITALS: BP 70/48
[2017-11-17 03:09] VITALS: BP 70/45
[2017-11-17 06:23] LABS: HEMATOCRIT 30.8 % (37.0-47.0); HEMOGLOBIN 9.9 gm/dL (12.0-15.0); MCH 34.3 pg (26.0-34.0); MCHC 32.3 g/dL (28.0-37.0); MCV 106.1 fL (80.0-100.0); PLATELET COUNT 223 thou/uL (150-400); RDW 20.1 % (10.5-14.5); WBC 6.3 thou/uL (4.0-11.0)
[2017-11-17 06:47] LABS: CALCIUM 8.5 mg/dL (8.5-10.1)
[2017-11-17 07:13] LABS: HEP B SURFACE Ab(ANTI-HBS Reactive (()); HEPATITIS B SURFACE AG Negative (Negative)
[2017-11-17 07:23] VITALS: BP 88/48
[2017-11-17 07:51] LABS: ABSOLUTE NEUTROPHILS 4.3 thou/uL (1.4-8.2); ANISOCYTOSIS 2+; MACROCYTES 1+; METAMYELOCYTES 1 %; POLYCHROMASIA SLIGHT
[2017-11-17 07:52] LABS: HYPOCHROMASIA 1+
[2017-11-17] MEDS ORDERED: PROBIOTIC1 EAC1 PO (09:49)
[2017-11-17] MEDS ORDERED: LEVAQUIN 750 M750 MG PER TUBE ×2 (09:49→09:56)
[2017-11-17] MEDS ORDERED: TYLENOL325 MG PO (09:49)
[2017-11-17] MEDS ORDERED: DILTIAZEM 24HR180 M1 PO (09:49)
[2017-11-17] MEDS ORDERED: HEMORRHOIDAL OI TOP (09:49)
[2017-11-17 11:38] VITALS: BP 88/48
== END 2017-11-17 13:40 | disposition home health service (06) | DRG 871 ==
LOC: ER 18:19 → EROBS 19:52 → 3W 19:52 → ENTRNSPT 11-17 13:02 → EDTRNSPTSTS 11-17 13:05 → 3W 11-17 13:40
PROVIDERS: Emergency Medicine; Family Medicine; Hospitalist; Nurse Practitioner Acute Care
PROC: 5A1D70Z Performance of Urinary Filtration, Intermittent, Less than 6 Hours Per Day (ICD-10-PCS; 2017-11-12)
PROC: 5A1D70Z Performance of Urinary Filtration, Intermittent, Less than 6 Hours Per Day (ICD-10-PCS; 2017-11-13)
PROC: 5A1D70Z Performance of Urinary Filtration, Intermittent, Less than 6 Hours Per Day (ICD-10-PCS; 2017-11-15)
PROC: 5A09357 Assistance with Respiratory Ventilation, Less than 24 Consecutive Hours, Continuous Positive Airway Pressure (ICD-10-PCS; principal; 2017-11-16)
PROC: 5A1D70Z Performance of Urinary Filtration, Intermittent, Less than 6 Hours Per Day (ICD-10-PCS; 2017-11-16)
PROC: 5A09357 Assistance with Respiratory Ventilation, Less than 24 Consecutive Hours, Continuous Positive Airway Pressure (ICD-10-PCS; 2017-11-17)
DX: A41.9 Sepsis, unspecified organism (principal); I50.31 Acute diastolic (congestive) heart failure; N18.6 End stage renal disease; I13.2 Hypertensive heart and chronic kidney disease with heart failure and with stage 5 chronic kidney disease, or end stage renal disease; D68.9 Coagulation defect, unspecified; J96.11 Chronic respiratory failure with hypoxia; E66.2 Morbid (severe) obesity with alveolar hypoventilation; K62.5 Hemorrhage of anus and rectum; I25.10 Atherosclerotic heart disease of native coronary artery without angina pectoris; J44.9 Chronic obstructive pulmonary disease, unspecified; E11.22 Type 2 diabetes mellitus with diabetic chronic kidney disease; E78.00 Pure hypercholesterolemia, unspecified; F32.9 Major depressive disorder, single episode, unspecified; B37.9 Candidiasis, unspecified; L89.159 Pressure ulcer of sacral region, unspecified stage; I95.9 Hypotension, unspecified; I25.5 Ischemic cardiomyopathy; I48.2 Chronic atrial fibrillation; K21.9 Gastro-esophageal reflux disease without esophagitis; E03.9 Hypothyroidism, unspecified; N76.2 Acute vulvitis; Z99.2 Dependence on renal dialysis; Z90.49 Acquired absence of other specified parts of digestive tract; Z98.42 Cataract extraction status, left eye; Z98.41 Cataract extraction status, right eye; I25.2 Old myocardial infarction; Z90.710 Acquired absence of both cervix and uterus; Z95.5 Presence of coronary angioplasty implant and graft; Z79.899 Other long term (current) drug therapy; Z88.8 Allergy status to other drugs, medicaments and biological substances; Z88.0 Allergy status to penicillin; Z87.891 Personal history of nicotine dependence; Z68.35 Body mass index [BMI] 35.0-35.9, adult
CPT/HCPCS: 10779; 32100

== ENCOUNTER 2017-11-18 12:19 | Inpatient (IN) | payer OTHER ==
[~2017-11-18] VITALS: Ht 162.6 cm; Wt 94.8 kg
--- NOTE | ~2017-11-18 | EKG ---
[place] [address] [facility] [place] [address] ELECTROCARDIOGRAM REPORT Name: JED PINON Room #: 357-P ADM IN M.R.#: [id number] Admission: 11/18/17 Attend Phys: Eric Merida MD Discharge: Date of : 41 Report #: [id number] THIS REPORT FOR: //name// [facility] ED Test Date: 2017-11-18 Test Time: 12:20:18 Pat Name: JED PINON Department: Room: 357 Gender: F Top Taper Machine: ADRIANA : 1940 Requested By: Darren Glover Order Number: [id number] MD: Vitaliy Abarca Measurements Intervals [place] Rate: 112 P: [place]: QRS: 125 QRSD: 106 T: 171 QT: 376 QTc: 514 Interpretive Statements Atrial fibrillation Left posterior fascicular block Abnormal R-wave progression, late transition Repol abnrm, severe global ischemia (LM/MVD) Prolonged QT interval Compared to ECG 11/11/2017 18:24:08 Left posterior fascicular block now present persistent inferior ST elevation Electronically Signed On 11-18-2017 16:06:34 AUDIO VISUAL EQUIPMENT RENTAL CLERK by Vitaliy Abarca [email or web address] <ELECTRONICALLY SIGNED> By: Vitaliy Abarca MD, FAC 11/18/17 1606 1220 1220 Vitaliy Abarca MD, FAC /EPI
--- NOTE | ~2017-11-18 | EKG ---
[address] [address] ELECTROCARDIOGRAM REPORT Name: JED PINON Room #: 357- DIS IN M.R.#: [id number] Admission: 11/18/17 Attend Phys: Eric Merida MD Discharge: 11/25/17 Date of : 41 Report #: [id number] THIS REPORT FOR: //name// [facility] Test Date: 2017-11-25 Test Time: 15:40:37 Pat Name: JED PINON Department: Room: 357 P Gender: F [employer] Attendant: Judy VASQUEZ : 1940 Requested By: Rian Zaragoza Order Number: [id number] MD: Vitalyi Abarca Measurements Intervals [place] Rate: 135 P: [place]: QRS: 165 QRSD: 129 T: 140 QT: 316 QTc: 474 Interpretive Statements Atrial fibrillation Nonspecific intraventricular conduction delay Repol abnrm suggests ischemia, diffuse leads Compared to ECG 11/18/2017 12:20:18 QRS duration has widened Electronically Signed On 11-26-2017 7:58:35 HORSE EXERCISER by Vitaliy Abarca [email or web address] <ELECTRONICALLY SIGNED> By: Vitaliy Abarca MD, [facility] 11/26/17 0758 1540 1540 Vitaliy Abarca MD, [facility] /EPI
--- NOTE | ~2017-11-18 | HC ---
[facility] [place] [address] CONSULTATION Name: JED PINON Room #: 357-P ADM IN M.R.#: [id number] Admission: 11/18/17 Attend Phys: Eric Merida MD Discharge: Date of : 42 Report #: [id number] THIS REPORT FOR: //name// CC: Eric [facility] DATE OF SERVICE: 11/22/2017 HISTORY OF PRESENT ILLNESS: The patient is a 77-year-old white female recently admitted to [facility] from 11/11/2017 through 11/17/2017 with atrial fibrillation, supratherapeutic INR, vulvar cellulitis. She was discharged home, but apparently was having problems with worsening weakness and ended up being readmitted on 11/18/2017. She is noted to have mild rhabdomyolysis with elevated troponin, diabetes mellitus. She has pneumonia. She is a dialysis patient on hemodialysis. Cardiology is seeing her and there is a question as to whether she needs cardiac catheterization. We are seeing her in rehabilitation medicine consultation with her medical complexity and generalized weakness and debilitation. PAST MEDICAL HISTORY: Includes coronary artery disease, COPD, diabetes mellitus, insulin-dependent, cardiac stents x 3, right carotid endarterectomy, [place], end-stage renal disease, on hemodialysis; hypertension, elevated cholesterol, GERD, cardioversion, new onset atrial fibrillation 07/11/2017. MEDICATIONS: Please see the full medication listing. ALLERGIES: METFORMIN AND PENICILLIN. HABITS: Former smoker, quit greater than a year ago. No history of alcohol abuse. SOCIAL HISTORY: House spouse, used a walker when outside the house, but did not use when inside the house. There are 3 steps in. She was on 4 liters nasal cannula premorbidly. Involve daughters. REVIEW OF SYSTEMS: Did not offer any current complaints of chest pain, shortness of breath, abdominal discomfort. Complains of overall generalized weakness. Note, she has had a fall and think she just lost her balance. PHYSICAL EXAMINATION: GENERAL: A 77-year-old pleasant, overweight white female in no obvious distress. VITAL SIGNS: Last recorded temperature 97.7, pulse 107, respirations 20, blood pressure 103/40. She is alert, pleasant. [facility] [address] [place] [address] CONSULTATION Name: JED PINON Room #: 357-[facility] IN [facility].#: [id number] Admission: 11/18/17 Attend Phys: Eric Merida MD Discharge: Date of : 41 Report #: [id number] HEENT: Appeared to be benign. NEUROLOGIC: Cranial nerves are grossly intact. She is chronically ill-appearing female. UPPER EXTREMITIES: She has functional range of motion of both upper extremities. Strength is grade 3+ to 4-/5. DTRs are trace to 1. LOWER EXTREMITIES: No focal calf swelling, functional range of motion with strength grade 4-/5. DTRs are trace to 1. Transfers are min assist with gait min assist to 40 feet. ASSESSMENT: A 77-year-old white female with the following problems: 1. Medical complex with generalized debilitation. 2. Pneumonia. 3. History of some rhabdomyolysis. 4. Elevated troponin. Stress test shows lateral ischemia and there is a question of hospital cardiac catheterization. 5. End-stage renal disease, on hemodialysis. 6. Vulvar cellulitis. 7. Hypotension. 8. Diabetes mellitus. 9. Atrial fibrillation with chronic anticoagulation. 10. Chronic obstructive pulmonary disease. 11. Obstructive sleep apnea. 12. Coronary artery disease with cardiac stenting. PLAN: There is question of possible cardiac catheterization. Therapies are to continue working with her. Note that case management is involved looking at post-acute options. At this point, we will continue to follow along with you. <ELECTRONICALLY SIGNED> By: Willy Singh MD 11/23/17 0857 1104 2310 Willy Singh MD /PMT
--- NOTE | ~2017-11-18 | HC ---
[facility] [place] [address] CONSULTATION Name: JED PINON Room #: 357-P [facility] IN .R.#: [id number] Admission: 11/18/17 Attend Phys: Eric Merida MD Discharge: 11/25/17 Date of : 41 Report #: [id number] THIS REPORT FOR: //name// [facility] DATE OF SERVICE: 11/20/2017 REFERRING PROVIDER: Eric Merida M.D. REASON FOR CONSULTATION: Shortness of breath and hypoxemia. HISTORY OF PRESENT ILLNESS: Our group is asked to see the patient in consultation, was called this morning, seen early afternoon for ongoing increased FiO2 requirements. The patient apparently has a history significant for underlying chronic obstructive pulmonary disease and typically on supplemental oxygen and nocturnal CPAP for sleep apnea. She has had a recent admission in October due to atrial fibrillation with rapid ventricular response and cellulitis. The patient had been receiving some home health, but had some complicating features, re-presented to the Emergency Department feeling a weakness. Denies any cough or dyspnea. Also has been somewhat lethargic. During her stay overnight, had some difficulty with the hospital BiPAP, which was utilized due to hypercapnia on admission and then subsequently was placed on her own home CPAP, but had escalating FiO2 requirements. Currently is back down to 6 liters nasal cannula, which is a little bit higher than her baseline. Again, denies much cough or sputum production. No chest pains. During her hospital stay, a stress echo has also been performed. Stress nuclear study did show some suggestion of ischemia. A chest x-ray was done today, which showed what appeared to be a right basilar infiltrate. The patient has been on Levaquin since admission. Of note, was started on amiodarone today for atrial fibrillation with rapid ventricular response. ALLERGIES: INCLUDE PENICILLIN AND METFORMIN. PAST MEDICAL HISTORY: 1. Underlying chronic obstructive pulmonary disease, severity not quantified in the records available. 2. Atrial fibrillation. 3. Coronary artery disease. 4. End-stage renal disease, on hemodialysis. 5. Recent cellulitis. 6. Diabetes mellitus type 2. 7. Peripheral vascular disease. 8. Hypertension. 9. Sleep apnea, on nocturnal CPAP. [facility] [address] [address] CONSULTATION Name: JED PINON Room #: 357-[facility].#: [id number] Admission: 11/18/17 Attend Phys: Eric Merida MD Discharge: 11/25/17 Date of : 41 Report #: [id number] SOCIAL HISTORY: Ex-smoker. No alcohol consumption. Lives with her . FAMILY HISTORY: Noncontributory. REVIEW OF SYSTEMS: CONSTITUTIONAL: Some generalized weakness and diminished appetite. No fever or chills. ENT: No upper respiratory congestion, rhinorrhea, headaches, or dysphagia. CARDIOVASCULAR: As described in HPI with atrial fibrillation. GASTROINTESTINAL: Some nausea. No vomiting, no abdominal pain. Diminished appetite. GENITOURINARY: No dysuria, no frequency. INTEGUMENT: Denies any new rash. MUSCULOSKELETAL: Some generalized weakness. No focal complaints. PHYSICAL EXAMINATION: VITAL SIGNS: Temperature 37.4, pulse 110 and irregular, respiratory rate 20s, blood pressure 115/92. GENERAL: This is an elderly woman, appears weak. ENT: Clear oropharynx. NECK: Supple, no lymphadenopathy. LUNGS: Bronchial breath sounds 1/4 up on the right posteriorly. No wheezes. CARDIOVASCULAR: Heart is irregular and tachycardic. No murmurs appreciated. ABDOMEN: Soft, nontender, no masses. EXTREMITIES: Revealed left upper extremity fistula with palpable thrill. No significant edema. LABORATORY DATA: Arterial blood gas this morning revealed pH 7.40, pCO2 of 41, pO2 of 60, bicarbonate 25, was on BiPAP. No chemistries since admission. INR was 3.9 on admission, no followup. CBC requested by me to follow up on white blood cell count, which was not elevated. IMPRESSION: 1. Right lower lobe infiltrate consistent with healthcare-associated pneumonia. Given its location, aspiration could also be a concern. I would be concerned about continuing Levaquin in the face of a healthcare-associated pneumonia as monotherapy in addition to its use with amiodarone in the face of a patient with a prolonged QT corrected on recent EKG. 2. Underlying chronic obstructive pulmonary disease. 3. Acute on chronic hypoxemic respiratory failure. 4. Sleep apnea. 5. Abnormal stress nuclear study in a patient with history of coronary artery disease. 6. End-stage renal disease. SUGGESTIONS: [address] [address] CONSULTATION Name: JED PINON Room #: 357-P [facility] IN M.R.#: [id number] Admission: 11/18/17 Attend Phys: Eric Merida MD Discharge: 11/25/17 Date of : 41 Report #: [id number] 1. Cultures. 2. Stop Levaquin. 3. Meropenem and vancomycin renal dose. 4. Systemic steroid taper. 5. Frequent bronchodilators. 6. Follow up chest x-ray. 7. Suggest laboratories including reevaluation of INR. Additional recommendations to follow. Discussed with daughter who is at the bedside. <ELECTRONICALLY SIGNED> By: Aime Vu MD 12/01/17 1233 1652 2131 Aime Vu MD /nt
--- NOTE | ~2017-11-18 | HC ---
[facility] [place] [address] CONSULTATION Name: JED PINON Room #: 357-P ADM IN M.R.#: [id number] Admission: 11/18/17 Attend Phys: Eric Merida MD Discharge: Date of : 41 Report #: [id number] THIS REPORT FOR: //name// [facility] DATE OF SERVICE: 11/19/2017 CHIEF COMPLAINT: Gluteal and labial ulceration. HISTORY OF PRESENT ILLNESS: This is a 77-year-old female patient with a history of end-stage renal disease, requiring hemodialysis and known coronary artery disease, who has presented to the Emergency Department for increasing weakness. She was recently hospitalized with atrial fibrillation, rapid ventricular response, was noted to have some swelling of her right labial region as well as ulceration to the right gluteal region. I have been asked to see her with regard to wound care. Nurses say that the labial area has improved since her previous hospitalization. The patient notes mild pain in that area. Denies other complaints at this time. PAST MEDICAL HISTORY: Includes coronary artery disease, COPD, diabetes mellitus, recent onset atrial fibrillation, hypothyroidism. SOCIAL HISTORY: The patient is a previous smoker, having quit greater than a year ago. Denies alcohol or drug use. MEDICATIONS: Include fenofibrate, ProAmatine, Coumadin, Lopressor, [place] caps, vitamin E, Xanax, calcium acetate, Synthroid, Lipitor, Actos, Protonix, Mirapex, Nitrostat, Zoloft, AccuNeb, diltiazem. ALLERGIES: METFORMIN, PENICILLIN. FAMILY HISTORY: Noncontributory. REVIEW OF SYSTEMS: CONSTITUTIONAL: The patient denies fever, chills or weight loss. NEUROLOGICAL: The patient complains of some generalized weakness. Denies focal weakness. ENT: The patient denies earache, nasal drainage or sore throat. CARDIOVASCULAR: The patient denies chest pain, palpitations, diaphoresis. PULMONARY: The patient denies cough or shortness of breath. GASTROINTESTINAL: The patient denies nausea, vomiting, diarrhea, or abdominal pain. ORTHOPEDIC: The patient denies pain or swelling of the extremities. INFORMATION SECURITY SYSTEMS INSTRUCTOR: The patient does note labial swelling. Denies much pain in this area. Other systems in a 14-point review of systems are negative. [address] [address] CONSULTATION Name: JED PINON Room #: 357-P [facility] IN .R.#: [id number] Admission: 11/18/17 Attend Phys: Eric Merida MD Discharge: Date of : 41 Report #: [id number] PHYSICAL EXAMINATION: VITAL SIGNS: At this time include pulse rate 95, respiratory rate of 21, blood pressure of 84/37, temperature 97.4. GENERAL: This is a chronically ill-appearing female patient, appears to be in minimal distress. HEENT: Normocephalic. Nose is clear. NECK: Supple. HEART: Irregular without murmur. ABDOMEN: Soft and bowel sounds are present. GENITOURINARY: Examination of the genitourinary region demonstrates what appears to be some labial swelling on the right side. There are several areas that appear to be draining. I suspect she had a labial abscess or Bartholin's type abscess that is now beginning to spontaneously drain. I do not feel any fluctuance at this time and there is minimal erythema. She has some breakdown on her right buttock. I think this is more of an abrasion than pressure in origin. EXTREMITIES: Without clubbing or cyanosis. NEUROLOGIC: She is alert, moving all 4 extremities spontaneously. LABORATORY DATA: Includes sodium 136, potassium 3.4, chloride 96, CO2 of 30, BUN 12, creatinine 2.9, glucose 193. SGOT 131, bilirubin 1.3, calcium 8.7, alkaline phosphatase 150, SGPT is 64. CLINICAL IMPRESSION: 1. Right labial erythema and probable abscess that has begun spontaneous drainage. 2. Diabetes mellitus. 3. Abrasion to the right gluteal region. 4. Atrial fibrillation. 5. End-stage renal disease, requiring hemodialysis. 6. Moderate protein-calorie malnutrition. RECOMMENDATIONS: At this point in time, we will recommend warm compresses to the right labial ridge and I think this will facilitate additional drainage. I do not think any other dressings are required. We will recommend a zinc oxide ointment to the right gluteal region. We will recommend nutritional support. Recommend continuing all current medications. I appreciate being asked to see her in consultation. <ELECTRONICALLY SIGNED> By: Jarvis Garza MD 11/20/17 1135 1758 4025 Jarvis Garza MD /nt
--- NOTE | ~2017-11-18 | EKG ---
[address] [address] ELECTROCARDIOGRAM REPORT Name: JED PINON Room #: 357-[facility] IN M.R.#: [id number] Admission: 11/18/17 Attend Phys: Eric Merida MD Discharge: 11/25/17 Date of : 41 Report #: [id number] THIS REPORT FOR: //name// [facility] Test Date: 2017-11-25 Test Time: 18:56:19 Pat Name: JED PINON Department: Room: 357 Gender: F Trustee Of Estate: Judy VASQUEZ : 1940 Requested By: Rian Zaragoza Order Number: [id number] MD: Vitaliy Abarca Measurements Intervals [place] Rate: 48 P: [place]: QRS: -87 QRSD: 196 T: 96 QT: 477 QTc: 427 Interpretive Statements Junctional bradycardia Nonspecific intraventricular conduction delay Electronically Signed On 11-26-2017 8:38:44 BENCH BORING MACHINE OPERATOR by Vitaliy Abarca [email or web address] <ELECTRONICALLY SIGNED> By: Vitaliy Abarca MD, [facility] 11/26/17 0838 1856 55 Vitaliy Abarca MD, FACC /EPI
--- NOTE | ~2017-11-18 | HC ---
[facility] [place] [address] CONSULTATION Name: JED PINON Room #: 357-P ADM IN M.R.#: [id number] Admission: 11/18/17 Attend Phys: Eric Merida MD Discharge: Date of : 42 Report #: [id number] THIS REPORT FOR: //name// [facility] CHIEF COMPLAINT: Weakness, fatigue, low blood pressure. HISTORY OF PRESENT ILLNESS: The patient is a 77-year-old female with end-stage renal disease and persistent atrial fibrillation, coronary artery disease and general debilitation, who was recently discharged from this hospital with a cellulitis, and elevated AFib heart rates. At home, apparently her systolic pressures drop in the 50s-60s and she had falls. She was brought by ambulance to the Emergency Room. Her resting ECG shows diffuse ST segment abnormalities in the setting of repolarization and conduction delay. Ultimately, her cardiac troponin level was mildly elevated to 0.49. Clinically, the patient denied chest pain or pressure. She does have a history of coronary artery disease. With regard to atrial fibrillation, her heart rate is better controlled with heart rates under 100 on Cardizem 120 mg daily. She is anticoagulated with warfarin and her INR is therapeutic. She denies fevers or chills. She denies palpitation sensations. She is significantly debilitated. She cannot hardly stand. She has chronic oxygen requiring COPD and denies productive cough. PAST MEDICAL HISTORY: 1. Coronary artery disease, she has a remote history of a bare metal stent placed in the early 1999s, followed by Dr. Kowalski, although she has not been able to follow up with him because she has been in the hospital so frequently. She has persistent atrial fibrillation. An echocardiogram last hospitalization demonstrated preserved LV systolic function. 2. End-stage renal disease. 3. Hypotension, orthostasis, on midodrine therapy. 4. Left posterior fascicular block ECG abnormality. 5. Candidiasis. ALLERGIES: She has ALLERGIES TO METFORMIN and PENICILLINS. REVIEW OF SYSTEMS: GASTROINTESTINAL: No abdominal pain, nausea. GENITOURINARY: No dysuria. [facility] [address] [place] [address] CONSULTATION Name: JED PINON Room #: 357-P [facility] IN ..#: [id number] Admission: 11/18/17 Attend Phys: Eric Merida MD Discharge: Date of : 42 Report #: [id number] SKIN: She had been treated with Levaquin for her cellulitis. No edema. NEUROLOGIC: Denies headaches, blurry vision, slurred speech or focal numbness or weakness. CARDIOVASCULAR: No chest pain. No neck or jaw discomfort. Positive shortness of breath, no orthopnea, no PND. NEUROLOGIC: Denies headaches, blurry vision. Positive weakness, positive falls. HOME MEDICATIONS: Midodrine 10 mg p.o. t.i.d., warfarin 4 mg daily, Cardizem 180 mg sustained release, atorvastatin 40 mg at bedtime, Actos 15 mg daily, albuterol, Atrovent, Zoloft. PAST SURGICAL HISTORY: Prior PCI, prior right carotid endarterectomy, prior cholecystectomy, prior appendectomy, prior dialysis catheter. PHYSICAL EXAMINATION: VITAL SIGNS: Blood pressure is 77/27, pulse rate is 97, temperature is 36.7, O2 sats on 4.5 liters. GENERAL: This is a pleasant elderly female. She is sitting on the edge of the bed, eating breakfast. HEENT: Eyes: EOMs intact. No facial asymmetry. NECK: Supple. No jugular venous distention. CARDIOVASCULAR: Irregular with systolic murmur. LUNGS: There are diminished breath sounds, equal. There are no rales. ABDOMEN: Obese, nontender, nondistended. EXTREMITIES: There is peripheral wasting. There is no peripheral edema. LABORATORY DATA: Electrocardiogram demonstrates left posterior fascicular block with diffuse repolarization and conduction delay. Hemoglobin is 10.2; white blood count 6.5; platelet count is 227,000. Sodium is 136, potassium is 3.8, chloride is 96, CO2 is 24, BUN is 12, creatinine is 2.9. Troponin I is 0.49, 0.45, 0.46 respectively since this admission. Last admission, it was 0.10 and 0.15, in 02/2013 it was 0.59 and 1.08. Chest x-ray shows no change and mild pulmonary venous congestion and possible interstitial edema. IMPRESSION: 1. Weakness. This is multifactorial. Likely, she will need rehab transfer when her hospitalization is complete. 2. Elevated troponin level. I would like to evaluate her noninvasively with a pharmacologic stress test if her blood pressure is tolerated. She remains to be high risk for coronary angiogram for a neurologic event, but she is anticoagulated, so this would not be able to be performed, I will hold her warfarin for the time being. If her stress test is abnormal, she will need a heart catheterization. [facility] [address] [place] [address] CONSULTATION Name: JED PINON Room #: 357-P ADM IN MMik.#: [id number] Admission: 11/18/17 Attend Phys: Eric Merida MD Discharge: Date of : 42 Report #: [id number] 3. Atrial fibrillation. It is difficult to manage her heart rate. We had tried to avoid amiodarone in the past because of obstructive lung disease, but this may be inevitable, I will try to put her on a lower dose of immediate release Cardizem to control her heart rate, but in the next 24 hours if her heart rate increases, again we will need to start amiodarone load. 4. Acute diastolic heart failure. This seems to be clinically compensated. She is breathing comfortably. 5. Warfarin anticoagulation as noted above and unless her strength is not improved and she has more falls and we are not able to resolve her blood pressure issues, ultimately we will have to stop her warfarin. She would be very high risk for a left atrial appendage closure procedure also. 6. Hypotension. She will continue with midodrine. This is multifactorial as she requires hemodialysis. <ELECTRONICALLY SIGNED> By: Dmitry Soria MD, FACC 11/22/17 0910 [id number] Dmitry Soria MD, FACC /nt
[~2017-11-18 12:19] MED LIST changes: +COUMADIN 4 MG TA4 M1 PO; +DILTIAZEM 24HR180 M1 PO; +HEMORRHOIDAL OI TOP; +LEVAQUIN 750 M750 MG PER TUBE; +LOPRESSOR25 PO; +MIDODRINE HCL 55 M1 PO; +PROBIOTIC1 EAC1 PO; +RENO CAPS SOFTGE1 MG PO; +TYLENOL325 MG PO
[2017-11-18 12:20] VITALS: BP 79/29
[2017-11-18 12:52] LABS: CALCIUM 8.7 mg/dL (8.5-10.1); CREATININE 2.9 mg/dL (0.6-1.0); HEMATOCRIT 31.6 % (37.0-47.0); HEMOGLOBIN 10.3 gm/dL (12.0-15.0); MCH 34.6 pg (26.0-34.0); MCHC 32.7 g/dL (28.0-37.0); MCV 105.9 fL (80.0-100.0); PLATELET COUNT 227 thou/uL (150-400); POTASSIUM 3.4 mmol/L (3.5-5.1); RBC 2.99 mil/uL (4.20-5.00); RDW 20.8 % (10.5-14.5); WBC 6.5 thou/uL (4.0-11.0)
[2017-11-18 13:00] LABS: ALBUMIN 2.9 g/dL (3.4-5.0); MAGNESIUM 1.9 mg/dL (1.8-2.4); TOTAL BILIRUBIN 1.3 mg/dL (<0.1-1.0); TOTAL PROTEIN 7.5 g/dL (6.4-8.2); TROPONIN-I 0.46 ng/mL (<0.06)
[2017-11-18 13:53] LABS: PROTIME 39.1 Seconds (9.3-11.4)
[2017-11-18 13:55] LABS: INR 3.9
[2017-11-18 13:56] LABS: ABSOLUTE NEUTROPHILS 3.8 thou/uL (1.4-8.2); ANISOCYTOSIS 2+; HYPOCHROMASIA 1+; PLATELET ESTIMATE NORMAL
[2017-11-18 13:57] LABS: MACROCYTES 1+
[2017-11-18 19:00] VITALS: BP 106/81
[2017-11-18 23:30] VITALS: BP 119/89
[2017-11-19] VITALS (7 sets, daily range): BP systolic 77–86; BP diastolic 27–43
[2017-11-19 21:30] LABS: BE(vivo) 1.6 mmol/L (-2 to +3); HCO3 27.7 mmol/L (22.0-26.0); PCO2 50.7 mmHg (35.0-45.0); PO2 67.5 mmHg (80.0-100.0); pH 7.356 (7.360-7.450); sO2 92.5 % (92.0-98.0)
[2017-11-20 00:10] VITALS: BP 112/98
[2017-11-20 04:50] LABS: BE(vivo) -0.1 mmol/L (-2 to +3); HCO3 24.3 mmol/L (22.0-26.0); PCO2 38.9 mmHg (35.0-45.0); pH 7.414 (7.360-7.450); sO2 86.2 % (92.0-98.0)
[2017-11-20 04:51] LABS: PO2 50.2 mmHg (80.0-100.0)
[2017-11-20 05:00] VITALS: BP 115/92
[2017-11-20 06:10] LABS: BE(vivo) 0.4 mmol/L (-2 to +3); HCO3 25.2 mmol/L (22.0-26.0); PCO2 41.2 mmHg (35.0-45.0); PO2 60.2 mmHg (80.0-100.0); pH 7.404 (7.360-7.450); sO2 91.2 % (92.0-98.0)
[2017-11-20 13:44] VITALS: BP 64/35
[2017-11-20 15:22] VITALS: BP 67/37
[2017-11-20 15:46] LABS: HEMATOCRIT 29.4 % (37.0-47.0); HEMOGLOBIN 9.5 gm/dL (12.0-15.0); MCH 34.4 pg (26.0-34.0); MCHC 32.2 g/dL (28.0-37.0); MCV 106.7 fL (80.0-100.0); RBC 2.76 mil/uL (4.20-5.00); RDW 20.5 % (10.5-14.5); WBC 5.4 thou/uL (4.0-11.0)
[2017-11-20 19:30] VITALS: BP 95/50
[2017-11-20 23:30] VITALS: BP 79/51
[2017-11-21 03:15] VITALS: BP 82/48
[2017-11-21 03:49] LABS: BE(vivo) 1.2 mmol/L (-2 to +3); HCO3 24.6 mmol/L (22.0-26.0); PCO2 34.6 mmHg (35.0-45.0); PO2 70.8 mmHg (80.0-100.0); pH 7.469 (7.360-7.450); sO2 95.3 % (92.0-98.0)
[2017-11-21 06:10] LABS: HEMATOCRIT 29.9 % (37.0-47.0); HEMOGLOBIN 9.7 gm/dL (12.0-15.0); MCH 34.5 pg (26.0-34.0); MCHC 32.5 g/dL (28.0-37.0); MCV 106.1 fL (80.0-100.0); RBC 2.82 mil/uL (4.20-5.00); RDW 20.7 % (10.5-14.5); WBC 4.1 thou/uL (4.0-11.0)
[2017-11-21 06:25] LABS: CALCIUM 9.1 mg/dL (8.5-10.1); CREATININE 3.4 mg/dL (0.6-1.0); POTASSIUM 5.3 mmol/L (3.5-5.1)
[2017-11-21 08:07] VITALS: BP 81/38
[2017-11-21 11:46] VITALS: BP 82/48
[2017-11-21 12:45] VITALS: BP 85/46
[2017-11-21 14:03] LABS: HEMATOCRIT 33.2 % (37.0-47.0); HEMOGLOBIN 10.7 gm/dL (12.0-15.0); MCH 34.3 pg (26.0-34.0); MCHC 32.1 g/dL (28.0-37.0); MCV 106.6 fL (80.0-100.0); RBC 3.11 mil/uL (4.20-5.00); RDW 20.8 % (10.5-14.5); WBC 6.6 thou/uL (4.0-11.0)
[2017-11-21 14:18] LABS: PROTIME 46.3 Seconds (9.3-11.4)
[2017-11-21 14:31] LABS: INR 4.6
[2017-11-21 14:49] LABS: ANION GAP 9 mmol/L (7-16); BUN 23 mg/dL (7-18); CALCIUM 9.4 mg/dL (8.5-10.1); CHLORIDE 97 mmol/L (98-107); CHOLESTEROL 101 mg/dL (<200); CO2 26 mmol/L (21-32); CREATININE 3.9 mg/dL (0.6-1.0); GLUCOSE 246 mg/dL (74-106); HDL CHOLESTEROL 16 mg/dL (>40); LDL CHOLESTEROL 67 mg/dL (<100); SODIUM 132 mmol/L (136-145); TC:HDL 6.3 Ratio (Not establshd); TRIGLYCERIDE 90 mg/dL (<150); VLDL 18 mg/dL (<40)
[2017-11-21 15:00] LABS: POTASSIUM 6.8 mmol/L (3.5-5.1)
[2017-11-21 15:57] VITALS: BP 93/47
[2017-11-21 20:35] VITALS: BP 88/45
[2017-11-22 03:30] VITALS: BP 86/38
[2017-11-22 07:55] VITALS: BP 103/40
[2017-11-22 08:41] LABS: HEMATOCRIT 31.7 % (37.0-47.0); HEMOGLOBIN 10.2 gm/dL (12.0-15.0); MCH 34.1 pg (26.0-34.0); MCV 106.6 fL (80.0-100.0); RBC 2.98 mil/uL (4.20-5.00); RDW 20.6 % (10.5-14.5); WBC 6.3 thou/uL (4.0-11.0)
[2017-11-22 08:57] LABS: ALBUMIN 2.8 g/dL (3.4-5.0); CALCIUM 9.5 mg/dL (8.5-10.1); DIRECT BILIRUBIN 0.8 mg/dL (<0.1-0.3); PHOSPHORUS 2.9 mg/dL (2.5-4.9); PROTIME 21.6 Seconds (9.3-11.4); TOTAL BILIRUBIN 1.5 mg/dL (<0.1-1.0); TOTAL PROTEIN 7.4 g/dL (6.4-8.2)
[2017-11-22 08:59] LABS: CREATININE 4.9 mg/dL (0.6-1.0)
[2017-11-22 09:00] LABS: POTASSIUM 5.6 mmol/L (3.5-5.1)
[2017-11-22 09:30] LABS: INR 2.1
[2017-11-22 11:34] VITALS: BP 84/46
[2017-11-22 15:56] VITALS: BP 93/36
[2017-11-22 19:50] VITALS: BP 91/41
[2017-11-22 21:30] VITALS: BP 105/56
[2017-11-23] VITALS: BP 93/46
[2017-11-23 03:50] VITALS: BP 99/50
[2017-11-23 06:42] LABS: INR 1.5; PROTIME 15.7 Seconds (9.3-11.4)
[2017-11-23 12:15] VITALS: BP 90/45
[2017-11-23 19:20] VITALS: BP 108/58
[2017-11-24 04:25] VITALS: BP 93/49
[2017-11-24 07:35] VITALS: BP 84/51
[2017-11-24 11:31] VITALS: BP 107/53
[2017-11-24 16:50] VITALS: BP 116/53
[2017-11-24 20:00] VITALS: BP 81/26
[2017-11-25] VITALS: BP 72/43
[2017-11-25 00:33] VITALS: BP 82/47
[2017-11-25 04:00] VITALS: BP 89/50
[2017-11-25 08:44] VITALS: BP 98/55
[2017-11-25 08:51] VITALS: BP 98/55
== END 2017-11-25 19:34 | DRG 177 ==
LOC: ER 12:19 → EROBS 13:18 → 3W 13:18
PROVIDERS: Emergency Medicine; Hospitalist; Internal Medicine Cardiovascular Disease; Internal Medicine Nephrology; Internal Medicine Pulmonary Disease; Nurse Practitioner; Nurse Practitioner Family
PROC: 5A09457 Assistance with Respiratory Ventilation, 24-96 Consecutive Hours, Continuous Positive Airway Pressure (ICD-10-PCS; 2017-11-19)
PROC: 5A1D70Z Performance of Urinary Filtration, Intermittent, Less than 6 Hours Per Day (ICD-10-PCS; 2017-11-20)
PROC: 5A1D70Z Performance of Urinary Filtration, Intermittent, Less than 6 Hours Per Day (ICD-10-PCS; 2017-11-22)
PROC: 5A1D70Z Performance of Urinary Filtration, Intermittent, Less than 6 Hours Per Day (ICD-10-PCS; 2017-11-23)
PROC: 5A1D70Z Performance of Urinary Filtration, Intermittent, Less than 6 Hours Per Day (ICD-10-PCS; 2017-11-24)
PROC: 5A12012 Performance of Cardiac Output, Single, Manual (ICD-10-PCS; principal; 2017-11-25)
DX: J69.0 Pneumonitis due to inhalation of food and vomit (principal); N18.6 End stage renal disease; I50.31 Acute diastolic (congestive) heart failure; J96.21 Acute and chronic respiratory failure with hypoxia; I13.2 Hypertensive heart and chronic kidney disease with heart failure and with stage 5 chronic kidney disease, or end stage renal disease; E44.0 Moderate protein-calorie malnutrition; K62.5 Hemorrhage of anus and rectum; E66.2 Morbid (severe) obesity with alveolar hypoventilation; D68.9 Coagulation defect, unspecified; I25.10 Atherosclerotic heart disease of native coronary artery without angina pectoris; J44.9 Chronic obstructive pulmonary disease, unspecified; E11.22 Type 2 diabetes mellitus with diabetic chronic kidney disease; F32.9 Major depressive disorder, single episode, unspecified; E78.00 Pure hypercholesterolemia, unspecified; K21.9 Gastro-esophageal reflux disease without esophagitis; E03.9 Hypothyroidism, unspecified; B37.9 Candidiasis, unspecified; I95.9 Hypotension, unspecified; S30.810A Abrasion of lower back and pelvis, initial encounter; E11.51 Type 2 diabetes mellitus with diabetic peripheral angiopathy without gangrene; N76.2 Acute vulvitis; T79.6XXA Traumatic ischemia of muscle, initial encounter; W19.XXXA Unspecified fall, initial encounter; E11.65 Type 2 diabetes mellitus with hyperglycemia; E87.6 Hypokalemia; I48.2 Chronic atrial fibrillation; Z79.899 Other long term (current) drug therapy; Z88.8 Allergy status to other drugs, medicaments and biological substances; Z90.49 Acquired absence of other specified parts of digestive tract; Z95.5 Presence of coronary angioplasty implant and graft; I25.2 Old myocardial infarction; Z90.710 Acquired absence of both cervix and uterus; Z88.0 Allergy status to penicillin; Z87.891 Personal history of nicotine dependence; Z99.2 Dependence on renal dialysis; Y93.89 Activity, other specified; Y92.89 Other specified places as the place of occurrence of the external cause; Y99.8 Other external cause status; Z68.35 Body mass index [BMI] 35.0-35.9, adult; Z79.01 Long term (current) use of anticoagulants; Z79.4 Long term (current) use of insulin
CPT/HCPCS: 10879; 32100